=== PATIENT | female | born 1990 | race Caucasian/White ===

== ENCOUNTER 2020-01-03 21:40 | Outpatient (REF) | payer SELFPAY ==
[2020-01-06 08:59] LABS: Patient Race White; SARS-CoV-2 RNA Undetected (Undetected); SARS-CoV-2 Specimen Source Nasal
== END 2020-01-03 22:00 ==
LOC: NCHCN 21:40
PROVIDERS: PCP Pediatrics Adolescent Medicine; Visit Provider Family Medicine
DX: Z20.828 Contact with and (suspected) exposure to other viral communicable diseases (principal)
CPT/HCPCS: U0003